=== PATIENT | male | born 1945 | race Caucasian/White ===

== ENCOUNTER → 2020-07-01 | Outpatient (CLI) | payer MEDICARE, OTHER ==
[~2020-07-01] MED LIST: FENTANYL PF 100 MCG/2ML ONE; LIDOCAINE/PF 1%, 30ML ONE; MIDAZOLAM 1 MG/ML, 5ML ONE; SODIUM CHLORIDE 0.9%, 500ML ONE
== END | disposition home or self-care (01) ==
LOC: ROC 07:05
PROVIDERS: ATTEND Radiology Radiation Oncology
DX: C61 Malignant neoplasm of prostate (principal)
CPT/HCPCS: 55876; 76942; 77332; 99156; A4648; J2250; J3010; J7040